=== PATIENT | male | born 1965 | race African-American/Black ===

== ENCOUNTER 2020-07-19 09:08 | Emergency (ER) | payer MEDICAID, SELFPAY ==
[~2020-07-19] VITALS: Ht 195.6 cm; Wt 100.0 kg
[~2020-07-19 09:08] MED LIST: NOCURR
[2020-07-19] MEDS ORDERED: METH10 PO (09:17)
[2020-07-19] MEDS ORDERED: METHOCARBAMOL 500 MG TABLET PO ONE (10:45)
[2020-07-19] MEDS ORDERED: LIDOCAINE 5% TRANSDERMAL PATCH TD ONE (10:45)
[2020-07-19] MEDS ORDERED: IBUPROFEN 800 MG TABLET PO ONE (11:30)
[2020-07-19 12:10] VITALS: BP 163/91
== END 2020-07-19 12:18 | disposition home or self-care (01) ==
LOC: EMS 09:14
DX: M54.5 Low back pain (principal); R03.0 Elevated blood-pressure reading, without diagnosis of hypertension; F17.210 Nicotine dependence, cigarettes, uncomplicated
CPT/HCPCS: 72100; Z7502; Z7610

== ENCOUNTER 2020-07-25 12:07 | Emergency (ER) | payer MEDICAID ==
[~2020-07-25] VITALS: Ht 200.7 cm; Wt 115.0 kg
[~2020-07-25 12:07] MED LIST changes: +METH10 PO; -NOCURR
[2020-07-25 13:40] VITALS: BP 162/89
== END 2020-07-25 14:11 | disposition home or self-care (01) ==
LOC: EMS 12:08
DX: S39.012A Strain of muscle, fascia and tendon of lower back, initial encounter (principal); F11.90 Opioid use, unspecified, uncomplicated; X50.9XXA Other and unspecified overexertion or strenuous movements or postures, initial encounter; Y93.89 Activity, other specified; Y92.89 Other specified places as the place of occurrence of the external cause; Y99.8 Other external cause status
CPT/HCPCS: Z7502

== ENCOUNTER 2023-04-20 14:25 | Emergency (ER) | payer MEDICAID, OTHER ==
[~2023-04-20] VITALS: Ht 200.7 cm; Wt 110.0 kg
[2023-04-20 17:42] VITALS: BP 173/90; PULSE 82; RESP 18; TEMP 98.2
[2023-04-20] MEDS ORDERED: POVIDONE-IODINE 10% 15 ML SOLUTION UD TP ONE (18:45)
[2023-04-20] MEDS ORDERED: LIDOCAINE/PRILOCAINE 2.5% 30 GM CREAM TP ONE (18:45)
[2023-04-20] MEDS ORDERED: CEPH-558 PO (20:18)
== END 2023-04-20 20:29 | disposition home or self-care (01) ==
LOC: EMS 14:27
DX: Q18.1 Preauricular sinus and cyst (principal); F17.210 Nicotine dependence, cigarettes, uncomplicated
CPT/HCPCS: 69000; 99283

== ENCOUNTER → 2024-08-23 | Emergency (ER) | payer SELFPAY ==
[~2024-08-23] VITALS: Ht 200.7 cm; Wt 108.0 kg
[~2024-08-23] MED LIST changes: +AMLO-257 PO; +CEPH-558 PO
[2024-08-23 16:48] VITALS: TEMP 98.4
[2024-08-23] MEDS: KETOROLAC TROMETHAMINE 60 MG/2 ML VIAL IM ONE (20:45)
[2024-08-23 21:28] VITALS: BP 169/95; PULSE 88; RESP 18; O2SAT 99
[2024-08-23] MEDS: AmLODIPine BESYLATE 5 MG TABLET PO ONE (21:56)
== END | disposition home or self-care (01) ==
LOC: EMS 16:35
DX: S06.0XAA Concussion with loss of consciousness status unknown, initial encounter (principal); M54.2 Cervicalgia; R51.9 Headache, unspecified; I10 Essential (primary) hypertension; F17.210 Nicotine dependence, cigarettes, uncomplicated; W22.8XXA Striking against or struck by other objects, initial encounter; Y93.89 Activity, other specified; Y92.89 Other specified places as the place of occurrence of the external cause; Y99.8 Other external cause status
CPT/HCPCS: 70450; 72125; 96372; 99285; J1885